=== PATIENT | female | born 1955 | race Asian ===

== ENCOUNTER 2021-10-12 11:36 | Emergency (ER) | payer OTHER, SELFPAY ==
[2021-10-12] VITALS (8 sets, daily range): BP systolic 128–155; BP diastolic 64–88; PULSE 70–89; RESP 17; TEMP 36.2; O2SAT 93–99
[2021-10-12 12:07] LABS: Add Manual Diff / Slide Review NO; Basophils Absolute Auto 100 /uL (0-100); Basophils Percent Auto 0.7 % (0-2); Eosinophils Absolute Auto 100 /uL (0-450); Eosinophils Percent Auto 0.8 % (2-4); Hematocrit 42.9 % (36-46); Hemoglobin 14.6 g/dL (12.0-16.0); Lymphocytes Absolute Auto 2700 /uL (1100-4500); Lymphocytes Percent Auto 35.9 % (25-40); Mean Corpuscular Hemoglobin 29.7 PG (26-34); Mean Corpuscular Volume 87.5 fL (80-100); Monocytes Absolute Auto 400 /uL (0-900); Neutrophils Absolute Auto 4200 /uL (1500-7000); Neutrophils Percent Auto 56.6 % (50-75); Platelet Count 325 X10^3/uL (150-400); Red Blood Cell Count 4.91 X10^6/uL (4.0-5.2); Red Cell Distribution Width 13.2 % (11.6-14.8); White Blood Cell Count 7.5 X10^3/uL (4.5-11.0)
[2021-10-12 12:20] LABS: Alanine Aminotransferase 43 IU/L (<35); Albumin 4.9 g/dL (3.5-5.0); Albumin Globulin Ratio 1.5 (1.0-2.8); Alkaline Phosphatase 52 U/L (38-126); Aspartate Aminotransferase 40 IU/L (14-36); BUN Creatinine Ratio 25.5 (6-22); Bilirubin Total 0.5 mg/dL (0.2-1.3); Blood Urea Nitrogen 13 mg/dL (7-17); Calcium 9.6 mg/dL (8.4-10.2); Carbon Dioxide 25 mmol/L (22-32); Chloride 104 mmol/L (98-107); Estimated Glomerular Filt Rate > 60.0 mL/min (>60); Globulin 3.3 g/dL (1.7-4.1); Glucose 116 mg/dL (80-110); HEMOLYSIS 25 (0-50); Lipase 136 U/L (23-300); Potassium 4.4 mmol/L (3.4-5.1); Sodium 137 mmol/L (137-145); Total Protein 8.2 g/dL (6.3-8.2)
--- NOTE | 2021-10-12 13:13 | DI.CT.S_ITS ---
PROCEDURE: CT ABDOMEN PELVIS WO CON INDICATIONS: right lower quad abdominal pain TECHNIQUE: Noncontrast 5 mm thick sections acquired from the diaphragms to the symphysis. 5 mm coronal and sagittal reformats were then performed. For radiation dose reduction, the following was used: automated exposure control, adjustment of mA and/or kV according to patient size. COMPARISON: None. FINDINGS: Image quality: Excellent. ABDOMEN: Lung bases: Lung bases are clear. Heart size is normal. Solid organs: Liver is normal in size. Gallbladder is unremarkable . Pancreas is normal in contours. Spleen is normal in size. No adrenal nodules. Kidneys are normal in size, without hydronephrosis or nephrolithiasis. Peritoneum and bowel: Unenhanced bowel loops demonstrate normal wall thickness and caliber. There are scattered sigmoid diverticula. No evidence for diverticulitis. The appendix is thin walled. No free fluid or air. Nodes and vessels: No retroperitoneal or mesenteric adenopathy by size criteria. Aorta and inferior vena cava are normal in caliber. Miscellaneous: There is a fat containing umbilical hernia. PELVIS: Genitourinary: Bladder wall thickness is normal. The uterus is surgically absent. The ovaries are grossly unremarkable. Miscellaneous: No inguinal hernias or adenopathy. Bones: No suspicious bony lesions. No vertebral body compression fractures. IMPRESSION: 1. No acute intra-abdominal findings. Normal appendix. Diverticulosis. No acute diverticulitis. 2. No hydronephrosis, hydroureter, nephrolithiasis, or ureterolithiasis. Dictated by: Betty Braun M.D. on 10/12/2021 at 14:03 Approved by: Betty Braun M.D. on 10/12/2021 at 14:06
--- NOTE | 2021-10-12 13:14 | ED_ITS ---
HPI - Abdominal Pain <Mamadou Miller PA-C - Last Filed: 10/12/21 15:06> General Chief Complaint: Abdominal Pain Stated Complaint: Abd/back pain, on meds for ecoli in urine Time Seen by Provider: 10/12/21 13:05 Source: patient Mode of arrival: Ambulatory History of Present Illness HPI narrative: Patient presents to the ED complaining of right lower quadrant abdominal pain. She has been having ongoing issues with dysuria and hematuria for the past year. She states that she has been seen by multiple urgent cares and her primary has been prescribed antibiotics and the condition seems to resolve temporarily and t hen return. Patient is concerned about having cancer or something else that is more severe and that she has not been properly evaluated for her ongoing complaints of abdominal pain. She reports that she has notice some bleeding in her urine she denies any vaginal bleeding. This pain located in the right lower quadrant of her abdomen is described as sharp pain it radiates into her back and it started 1 week ago. No reported recent trauma or fall no prior history of any abdominal problems. No history of kidney stones. No reported fever nausea vomiting or diarrhea. Related Data Home Medications Medication Instructions Recorded Confirmed ciprofloxacin HCl 500 mg tablet 500 mg PO BID 10/12/21 10/12/21 Allergies Allergy/AdvReac Type Severity Reaction Status Date / Time No Known Drug Allergies Allergy Verified 10/12/21 11:51 Review of Systems <Mamadou Miller PA-C - Last Filed: 10/12/21 15:06> Review of Systems ROS Unobtainable: All systems reviewed & are unremarkable except as noted in HPI and below Constitutional Constitutional: Denies chills, Denies fatigue, Denies fever(s), Denies frequent falls, Denies lethargy and Denies weakness Eyes Eyes: Denies change in vision, Denies eye discharge, Denies irritation and Denies loss of vision ENT Ears, Nose, Mouth, and Throat: Denies change in voice, Denies dizziness, Denies neck pain, Denies sore throat and Denies throat swelling Cardiovascular Cardiovascular: Denies chest pain, Denies irregular heart rhythm, Denies lightheadedness, Denies palpitations, Denies dyspnea, Denies dyspnea on exertion and Denies orthopnea Respiratory Respiratory: Denies cough, Denies dyspnea, Denies dyspnea on exertion and Denies wheezing Gastrointestinal Gastrointestinal: Reports abdominal pain, Denies change in bowel habits, Denies diarrhea, Denies nausea and Denies vomiting Genitourinary Genitourinary: Reports hematuria, Denies flank pain, Denies urinary incontinence and Reports urinary urgency Musculoskeletal Musculoskeletal: Denies back pain, Denies muscle weakness, Denies neck pain, Denies numbness and Denies tingling Integumentary/Breasts Skin/Breast: Denies pruritus, Denies erythema, Denies rash and Denies wounds Neurologic Neurologic: Denies behavioral changes, Denies confusion, Denies dizziness, Denies frequent falls, Denies loss of vision, Denies numbness, Denies tingling and Denies weakness Psychiatric Psychiatric: Denies anxiety, Denies behavioral changes, Denies confusion, Denies depression, Denies homicidal ideation and Denies suicidal ideation Endocrine Endocrine: Denies fatigue, Denies flushing and Denies palpitations Hematologic/Lymphatic Hematologic/Lymphatic: Denies easy bruising Allergic/Immunologic Allergic/Immunologic: Denies urticaria, Denies throat swelling and Denies wheezing Patient History <Mamadou Miller PA-C - Last Filed: 10/12/21 15:06> Social History Smoking Status: Former smoker Smoking Status: Former smoker alcohol intake frequency: 0-2 drinks per day Substance Use Type: does not use Exam <Mamadou Miller PA-C - Last Filed: 10/12/21 15:06> Initial Vital Signs Initial Vital Signs: Vital Signs Temperature 97.2 F L 10/12/21 11:46 Pulse Rate 80 10/12/21 11:46 Respiratory Rate 17 10/12/21 11:46 Blood Pressure 128/88 10/12/21 11:46 Pulse Oximetry 99 10/12/21 11:46 Const General: cooperative, healthy appearing, comfortable, well developed and well groomed Nutritional Appearance: average body habitus and well nourished HENMI Head: normal to inspection, normocephalic and atraumatic Ears: hearing grossly normal bilaterally, external ears normal and TM's normal bilaterally Nose: external nose normal and nasal mucous membranes and turbinates normal Face and sinus: normal facial exam Mouth: oral mucosae normal Teeth and gingiva: dentition normal Eyes Pupils: PERRL Resp Effort & Inspection: normal respiratory effort and able to speak in complete sentences Auscultation: clear to auscultation bilaterally GI Inspection: normal to inspection and distended Palpation: soft and no hepatosplenomegaly Percussion: normal to percussion Auscultation: normal bowel sounds Skin General: no rashes or lesions noted <Lou Boyd DO - Last Filed: 10/13/21 10:15> Initial Vital Signs Initial Vital Signs: Vital Signs Temperature 97.2 F L 10/12/21 11:46 Pulse Rate 80 10/12/21 11:46 Respiratory Rate 17 10/12/21 11:46 Blood Pressure 128/88 10/12/21 11:46 Pulse Oximetry 99 10/12/21 11:46 Course <Mamadou Miller PA-C - Last Filed: 10/12/21 15:06> Orders Ordered: ED Orders 10/12/21 11:58 Complete Blood Count AUTO DIFF Stat Comprehensive Metabolic Panel Stat Lipase Stat 10/12/21 13:13 CT abdomen pelvis wo con Stat Consultations Consultation #1: I spoke with Dr. Cavazos guarding this patient's symptoms she reviewed the CT and suggested a laxative for increase stool burden on the right side. She was able to visualize the umbilicus hernia did not feel like this was the origin of her pain and recommended a laxative use prior to office evaluation. Vital Signs Vital signs: Vital Signs - 8 hr 10/12/21 11:46 10/12/21 13:02 10/12/21 13:30 Temperature 97.2 F L Pulse Rate 80 84 81 Respiratory Rate 17 Blood Pressure 128/88 151/78 H 140/70 Pulse Oximetry 99 95 93 10/12/21 13:45 10/12/21 13:46 10/12/21 14:00 Temperature Pulse Rate 86 89 83 Respiratory Rate Blood Pressure 154/74 H 154/74 H 155/71 H Pulse Oximetry 97 98 98 <Lou Boyd DO - Last Filed: 10/13/21 10:15> Orders Ordered: ED Orders 10/12/21 11:58 Complete Blood Count AUTO DIFF Stat Comprehensive Metabolic Panel Stat Lipase Stat 10/12/21 13:13 CT abdomen pelvis wo con Stat Vital Signs Vital signs: Vital Signs - 8 hr 10/12/21 11:46 10/12/21 13:02 10/12/21 13:30 Temperature 97.2 F L Pulse Rate 80 84 81 Respiratory Rate 17 Blood Pressure 128/88 151/78 H 140/70 Pulse Oximetry 99 95 93 10/12/21 13:45 10/12/21 13:46 10/12/21 14:00 Temperature Pulse Rate 86 89 83 Respiratory Rate Blood Pressure 154/74 H 154/74 H 155/71 H Pulse Oximetry 97 98 98 MDM - Abdominal Pain <Mamadou Miller PA-C - Last Filed: 10/12/21 15:06> Differential Diagnosis Differential diagnosis: Likely abdominal pain Lab Data Result diagrams: 10/12/21 11:58 10/12/21 11:58 Labs: Lab Results 10/12/21 10/12/21 Range/Units 11:58 11:58 WBC 7.5 (4.5-11.0) X10^3/uL RBC 4.91 (4.0-5.2) X10^6/uL Hgb 14.6 (12.0-16.0) g/dL Hct 42.9 (36-46) % MCV 87.5 (80-100) fL MCH 29.7 (26-34) PG MCHC 34.0 (30-36) % RDW 13.2 (11.6-14.8) % Plt Count 325 (150-400) X10^3/uL Neut % (Auto) 56.6 (50-75) % Lymph % (Auto) 35.9 (25-40) % Taylor % (Auto) 6.0 (3-14) % Eos % (Auto) 0.8 L (2-4) % Baso % (Auto) 0.7 (0-2) % Neut # (Auto) 4200 (1597-9542) /uL Lymph # (Auto) 2700 (3105-5626) /uL Taylor # (Auto) 400 (0-900) /uL Eos # (Auto) 100 (0-450) /uL Baso # (Auto) 100 (0-100) /uL Sodium 137 (137-145) mmol/L Potassium 4.4 (3.4-5.1) mmol/L Chloride 104 (98-107) mmol/L Carbon Dioxide 25 (22-32) mmol/L BUN 13 (7-17) mg/dL Creatinine 0.51 L (0.52-1.04) mg/dL Estimated GFR > 60.0 (>60) mL/min BUN/Creatinine Ratio 25.5 H (6-22) Glucose 116 H (80-110) mg/dL Calcium 9.6 (8.4-10.2) mg/dL Total Bilirubin 0.5 (0.2-1.3) mg/dL AST 40 H (14-36) IU/L ALT 43 H (<35) IU/L Alkaline Phosphatase 52 (38-126) U/L Total Protein 8.2 (6.3-8.2) g/dL Albumin 4.9 (3.5-5.0) g/dL Globulin 3.3 (1.7-4.1) g/dL Albumin/Globulin Ratio 1.5 (1.0-2.8) Lipase 136 (23-300) U/L Point of care testing: Urine Dip Bedside Urine Glucose Negative Bedside Urine Bilirubin - Negative Bedside Urine Ketone - Negative Urine Specific Kent 1.010 Bedside Urine Occult Blood - Negative Bedside Urine pH 6.5 Bedside Urine Protein - Negative Bedside Urine Urobilinogen - Negative Bedside Urine Nitrite - Negative Bedside Urine Leukocytes - Negative Esterase Imaging Data CT scan - abdomen/pelvis: Radiologist's Impression: PROCEDURE:? CT ABDOMEN PELVIS WO CON ? INDICATIONS:? right lower quad abdominal pain ? TECHNIQUE:? Noncontrast 5 mm thick sections acquired from the diaphragms to the symphysis.? 5 mm coronal and sagittal reformats were then performed.? For radiation dose reduction, the following was used:? automated exposure control, adjustment of mA and/or kV acco rding to patient size.? ? COMPARISON:? None. ? FINDINGS:? Image quality:? Excellent.? ? ABDOMEN:? Lung bases:? Lung bases are clear.? Heart size is normal.? ? Solid organs:? Liver is normal in size.? Gallbladder is unremarkable .? Pancreas is normal in contours.? Spleen is normal in size.? No adrenal nodules.? Kidneys are normal in size, without hydronephrosis or nephrolithiasis.? ? Peritoneum and bowel:? Unenhanced bowel loops demonstrate normal wall thickness and caliber.? There are scattered sigmoid diverticula. No evidence for diverticulitis.? The appendix is thin walled.? No free fluid or air.? ? Nodes and vessels:? No retroperitoneal or mesenteric adenopathy by size criteria.? Aorta and inferior vena cava are normal in caliber.? ? Miscellaneous:? There is a fat containing umbilical hernia. ? ? PELVIS:? Genitourinary:? Bladder wall thickness is normal.? The uterus is surgically abse nt.? The ovaries are grossly unremarkable.? ? Miscellaneous:? No inguinal hernias or adenopathy.? ? Bones:? No suspicious bony lesions.? No vertebral body compression fractures.? ? IMPRESSION:? ? 1. No acute intra-abdominal findings.? Normal appendix.? Diverticulosis.? No acute diverticulitis. ? 2. No hydronephrosis, hydroureter, nephrolithiasis, or ureterolithiasis.? ? ? Dictated by: Betty Braun M.D. on 10/12/2021 at 14:03 ? ? Approved by: Betty Braun M.D. on 10/12/2021 at 14:06?? MDM Narrative Medical decision making narrative: Patient was evaluated today for lower abdominal pain that radiates into the right lower quadrant. CT shows evidence of a non obstructed umbilicus hernia containing fat. Blood work and UA do not show any evidence of any infection or kidney stones at this time. I spoke with patient about the findings and she is requesting referral to a general surgeon to have her hernia evaluated. Patient will be discharged home and will follow-up with PCP and general surgery as needed. <Lou Boyd, DO - Last Filed: 10/13/21 10:15> Lab Data Labs: Lab Results 10/12/21 10/12/21 Range/Units 11:58 11:58 WBC 7.5 (4.5-11.0) X10^3/uL RBC 4.91 (4.0-5.2) X10^6/uL Hgb 14.6 (12.0-16.0) g/dL Hct 42.9 (36-46) % MCV 87.5 (80-100) fL MCH 29.7 (26-34) PG MCHC 34.0 (30-36) % RDW 13.2 (11.6-14.8) % Plt Count 325 (150-400) X10^3/uL Neut % (Auto) 56.6 (50-75) % Lymph % (Auto) 35.9 (25-40) % Taylor % (Auto) 6.0 (3-14) % Eos % (Auto) 0.8 L (2-4) % Baso % (Auto) 0.7 (0-2) % Neut # (Auto) 4200 (6562-0876) /uL Lymph # (Auto) 2700 (7733-9023) /uL Taylor # (Auto) 400 (0-900) /uL Eos # (Auto) 100 (0-450) /uL Baso # (Auto) 100 (0-100) /uL Sodium 137 (137-145) mmol/L Potassium 4.4 (3.4-5.1) mmol/L Chloride 104 (98-107) mmol/L Carbon Dioxide 25 (22-32) mmol/L BUN 13 (7-17) mg/dL Creatinine 0.51 L (0.52-1.04) mg/dL Estimated GFR > 60.0 (>60) mL/min BUN/Creatinine Ratio 25.5 H (6-22) Glucose 116 H (80-110) mg/dL Calcium 9.6 (8.4-10.2) mg/dL Total Bilirubin 0.5 (0.2-1.3) mg/dL AST 40 H (14-36) IU/L ALT 43 H (<35) IU/L Alkaline Phosphatase 52 (38-126) U/L Total Protein 8.2 (6.3-8.2) g/dL Albumin 4.9 (3.5-5.0) g/dL Globulin 3.3 (1.7-4.1) g/dL Albumin/Globulin Ratio 1.5 (1.0-2.8) Lipase 136 (23-300) U/L Point of care testing: Urine Dip Bedside Urine Glucose Negative Bedside Urine Bilirubin - Negative Bedside Urine Ketone - Negative Urine Specific Kent 1.010 Bedside Urine Occult Blood - Negative Bedside Urine pH 6.5 Bedside Urine Protein - Negative Bedside Urine Urobilinogen - Negative Bedside Urine Nitrite - Negative Bedside Urine Leukocytes - Negative Esterase Discharge Plan Departure Patient Disposition: Home Clinical Impression: Abdominal pain, Constipation, Hernia of abdominal wall Instructions: DI for Abdominal Pain-Adult, DI for Constipation Activity Restrictions/Additional Instructions: Your lower abdominal pain is likely result of increased stool burden and a laxative [id number] is recommended. If the laxative does not improve your pain you can follow-up with your PCP or the general surgeon to be further evaluated. Dr Carine Cavazos - General Surgeon [address] [place] [address], [address] Prescriptions: No Action ciprofloxacin HCl 500 mg tablet 500 mg PO BID 0RF Label Comments: take 1 tablet by mouth twice a day for 7 days Referrals: Priti Archer MD [Primary Care Provider] - <Lou Boyd DO - Last Filed: 10/13/21 10:15> Cosign ED Attending Ashleyature Attestation: I was immediately available in the department for consultation. Documentation has been reviewed. I agree with assessment and plan.
== END 2021-10-12 15:15 | disposition home or self-care (01) ==
PROVIDERS: Emergency Medicine; Emergency Provider Physician Assistant; PCP Internal Medicine
DX: K59.00 Constipation, unspecified (principal); K42.9 Umbilical hernia without obstruction or gangrene; Z87.891 Personal history of nicotine dependence
CPT/HCPCS: 36415; 74176; 80053; 81003; 83690; 85025; 99284